=== PATIENT | female | born 1940 | race Caucasian/White ===

== ENCOUNTER → 2016-11-04 | Outpatient (CLI) | payer MEDICARE, OTHER ==
[~2016-11-04] MED LIST: ALBUTEROL MININEB; ALBUTEROL MININEB NEB; ALBUTEROL17 GM INH; AMBIEN PO; AMBIEN10 MG PO; ANTIVERT PO; AVANDIA PO; CALCIUM1 TAB.CHEW PO; CITALOPRAM HBR10 MG PO; COUMADIN1 MG PO; COUMADIN4 MG PO; DESYREL50 MG PO; GLIPIZIDE10 MG PO; GLIPIZIDE10 MG/BOTT PO; GLUCOPHAGE850 MG PO; GLUCOTROL XL10 MG PO; HCTZ PO; HYDROCODON-ACE1 EAC5 PO; HYDROCODONE PO; HYDROCODONE-APA1 T30 PO; HYDROCODONE-APA1 T55 PO; JANUMET 50-1,1 UDTAB PO; JANUVIA PO; KEFLEX500 M2 PO; KEFLEX500 MG PO; LASIX PO; LASIX20 MG PO; LEVOTHYROXINE50 MC1 PO; LEVOTHYROXINE50 MCG PO; LOSARTAN POTASS25 MG PO; MAG-OXIDE400 MG PO; MEGACE PO; METFORMIN PO; MONODOX100 MG PO; NEXIUM PO; NORCO1 TAB 10/3 PO; OMEPRAZOLE40 MG PO; ONGLYZA5 MG PO; PANTOPRAZOLE SO40 MG PO; PARLODEL2.5 MG PO; PREDNISOLONE5 MG PO; PREDNISONE10 MG PO; PRINIVIL PO; PRINIVIL20 M1 PO; PYRIDOSTIGMINE PO; REGLAN PO; REGLAN10 MG PO; REQUIP0.25 MG PO; REQUIP1 MG PO; REQUIP4 MG PO; SIMVASTATIN20 MG PO; SINGULAIR PO; SPIRIVA18 MCG INH; SYMBICORT 16010.2 GM INH; SYMBICORT INH; SYNTHROID PO; TRAMADOL HCL50 M2 PO; TYLENOL325 M1 PO; VICODIN 5/1 TAB 5/50 PO; VITAMIN B 6 PO; VITAMIN B650 M1 PO; VYTORIN PO; ZANTAC PO; ZANTAC150 MG PO; ZITHROMAX PO; ZOCOR20 MG PO; [UNRECOGNIZED DRUG - REMARK]
--- NOTE | ~2016-11-04 | CR230 ---
[facility]. [facility] A Service of [facility] RADIOLOGY TEXT RESULTS PATIENT: REUBEN YUNG LOCATION: [facility] : 39 UNIT #: [id number] AGE: [address]: Lucie Lemus GLASS BULB SILVERER SEX: F ORDER DR: [id number] [place] [id number] O MR#: [id number] Acc #: [id number] NAME: REUBEN YUNG : 1940 SEX: F STUDY DATE/TIME: 11/04/2016 10:56 UNIT: SRAD ROOM: STUDY DESCRIPTION: CR Shoulder Min 2 View Rt Attending Physician: Lucie Lemus A.P.R.N. Referring Physician: Lucie Lemus A.P.R.N. Ordering Physician: Lucie Lemus A.P.R.N. Primary Care Physician: Tere Brewer M.D. MEDICAL IMAGING REPORT This report is preliminary unless electronic signature is present. EXAM Right shoulder HISTORY Chronic right shoulder pain for over 30 years with recent worsening of symptoms. TECHNIQUE 3 views of the shoulder were obtained and compared with 05/04/2016 FINDINGS Since the previous examination no changes are seen. Mild hypertrophic degenerative changes are seen at the glenohumeral joint with osteophyte formation. No abnormal soft tissue calcifications or erosions are seen. No acute bony abnormalities are noted. IMPRESSION Mild osteoarthritis of the glenohumeral joint. No change from previous exam. Dictated by... David Rodríguez M.D. THIS IS AN ELECTRONICALLY VERIFIED REPORT David Rodríguez M.D. at 11/07/2016 11:44 AM RLF/jerry TD: 11/04/2016 17:57 JOB #: [id number] MEDICAL IMAGING REPORT Page 1 of 1
--- NOTE | ~2016-11-04 | CR229 ---
[facility] A Service [facility] RADIOLOGY TEXT RESULTS PATIENT: REUBEN YUNG LOCATION: [facility] : 39 UNIT #: [id number] AGE: [address]: Lucie Lemus REELING MACHINE SETUP OPERATOR SEX: F ORDER DR: [id number] [place] [id number] O MR#: [id number] Acc #: [id number] NAME: REUBEN YUNG : 1940 SEX: F STUDY DATE/TIME: 11/04/2016 10:56 UNIT: SRAD ROOM: STUDY DESCRIPTION: CR Shoulder Min 2 View Lt Attending Physician: Lucie Lemus A.P.R.N. Referring Physician: Lucie Lemus A.P.R.N. Ordering Physician: Lucie Lemus A.P.R.N. Primary Care Physician: Tere Brewer M.D. MEDICAL IMAGING REPORT This report is preliminary unless electronic signature is present. EXAM Left shoulder HISTORY Left shoulder pain chronically for the past 30 years gradually worsening. TECHNIQUE Three views of the left shoulder were obtained. FINDINGS The acromioclavicular joint space is widened suggesting previous surgery. At the glenohumeral joint there is joint space narrowing with moderate osteophyte formation. There is no evidence of bone destruction, fracture or abnormal soft tissue calcification. IMPRESSION Moderately severe degenerative changes at the glenohumeral joint. Probable postoperative change at the acromioclavicular joint with spur formation along the lateral acromion. No acute bony abnormalities are seen. Dictated by... David Rodríguez M.D. THIS IS AN ELECTRONICALLY VERIFIED REPORT David Rodríguez M.D. at 11/07/2016 11:44 AM CORONA/angelina TD: 11/04/2016 17:08 JOB #: [id number] MEDICAL IMAGING REPORT [facility] A Service [facility] RADIOLOGY TEXT RESULTS PATIENT: REUBEN YUNG [facility] UN[facility] #: [id number] AGE: [address]: Lucie Lemus SEX: F ORDER DR: Page 1 of 1
--- NOTE | ~2016-11-04 | CR63 ---
[facility]. [facility] A Service of [facility] RADIOLOGY TEXT RESULTS PATIENT: REUBEN YUNG LOCATION: [facility] : 39 UNIT #: [id number] AGE: [address]: Lucie Lemus BANKRUPTCY PROCESSOR SEX: F ORDER DR: [id number] [place] [id number] O MR#: [id number] Acc #: [id number] NAME: REUBEN YUNG : 1940 SEX: F STUDY DATE/TIME: 11/04/2016 10:56 UNIT: SRAD ROOM: STUDY DESCRIPTION: CR Chest 2 View Attending Physician: Lucie Lemus A.P.R.N. Referring Physician: Lucie Lemus A.P.R.N. Ordering Physician: Lucie Lemus A.P.R.N. Primary Care Physician: Tere Brewer M.D. MEDICAL IMAGING REPORT This report is preliminary unless electronic signature is present. EXAM Chest 11/04/2016 [facility] HISTORY 76-year-old woman cough. Chest pain. Bilateral shoulder pain chronic symptoms, 6 years. Symptoms are however increasing. History of right mastectomy. High blood pressure, spine surgery. FINDINGS AP lateral chest views demonstrate cardiomegaly. Large body habitus with reduced inspiration. Lungs appear clear with no infiltrates. There is elevation of the right hemidiaphragm. Advanced degenerative thoracic marginal osteophytes with thoracolumbar fusion rods partially imaged. IMPRESSION Atherosclerotic cardiovascular disease with stable cardiomegaly. No acute chest finding. Thoracolumbar fusion rods partially imaged; degenerative findings throughout the spine with mildly exaggerated kyphosis. Large body habitus. Dictated by... Dale Vega M.D. THIS IS AN ELECTRONICALLY VERIFIED REPORT Dale Vega M.D. at 11/07/2016 8:08 AM JBB/jerry TD: 11/04/2016 17:03 JOB #: [id number] MEDICAL IMAGING REPORT Page 1 of 1
== END | disposition home or self-care (01) ==
LOC: SRAD 10:32
DX: M25.512 Pain in left shoulder (principal); M25.511 Pain in right shoulder; R05 Cough; I25.10 Atherosclerotic heart disease of native coronary artery without angina pectoris; I51.7 Cardiomegaly; M47.894 Other spondylosis, thoracic region; M40.205 Unspecified kyphosis, thoracolumbar region; M19.012 Primary osteoarthritis, left shoulder; M19.011 Primary osteoarthritis, right shoulder; Z98.890 Other specified postprocedural states; Z98.1 Arthrodesis status
CPT/HCPCS: 71020; 73030

== ENCOUNTER → 2016-11-10 | Outpatient (CLI) | payer MEDICARE, OTHER ==
--- NOTE | ~2016-11-10 | MY24 ---
[facility] A Service of [facility] RADIOLOGY TEXT RESULTS PATIENT: REUBEN YUNG LOCATION: [facility] : 39 UNIT #: [id number] AGE: [address]: ELENA CASE APRN SEX: F ORDER DR: [id number] [facility] [address] [place], [place] [address] [id number] O MR#: [id number] Acc #: [id number] NAME: REUBEN YUNG. : 1940 SEX: F STUDY DATE/TIME: 11/10/2016 8:40 UNIT: [facility] ROOM: STUDY DESCRIPTION: JOHN HICKS W/ CAD UNI LT Attending Physician: Elena Case Aprn Referring Physician: Lucie Lemsu A.P.R.N. Ordering Physician: Elena Case Aprn Primary Care Physician: Lucie Lemus A.P.R.N. MEDICAL IMAGING REPORT This report is preliminary unless electronic signature is present EXAM Diagnostic left mammogram, 11/10. INDICATION History of right side breast cancer status post mastectomy. No current complaints. Followup exam. FINDINGS Digital CC, MLO, and ML views of the left breast were obtained in addition to spot compression CC and MLO views. Study is reviewed with an FDA-approved CAD device. Comparison made with 01/12/2012. Breast parenchyma remains heterogeneously dense. No new masses or suspicious microcalcifications are seen. Benign calcifications are stable. Findings were discussed with the patient at the time of her examination today. IMPRESSION Benign left mammogram. Followup in 1 year recommended. Patients over the age of 40 are entered into a reminder system with target due date for the next mammogram. A result letter will also be sent to the patient. BIRADS: 2 Benign finding. Dictated by... David Charles Jr., M.D. THIS IS AN ELECTRONICALLY VERIFIED REPORT David Charles Jr., M.D. at 11/10/2016 4:49 PM [facility] A Service of [facility] RADIOLOGY TEXT RESULTS PATIENT: REUBEN YUNG LOCATION: [facility] #: [id number] : 39 UNIT #: [id number] AGE: [address]: ELENA CASE APRN SEX: F ORDER DR: SHANNON/analilia TD: 11/10/2016 10:23 JOB #: [id number] MEDICAL IMAGING REPORT Page 1 of 1 COPY
== END | disposition home or self-care (01) ==
LOC: CMAM 11-07 11:30
DX: R92.1 Mammographic calcification found on diagnostic imaging of breast (principal)
CPT/HCPCS: G0206

== ENCOUNTER → 2016-12-05 | Outpatient (CLI) | payer MEDICARE, OTHER ==
--- NOTE | ~2016-12-05 | CR169 ---
[facility]. [facility] A Service of [facility] & [facility] RADIOLOGY TEXT RESULTS PATIENT: REUBEN YUNG LOCATION: [facility] : 39 UNIT #: [id number] AGE: [address]: Lucie LemusP SEX: F ORDER DR: [id number] [address] [address] [id number] O MR#: [id number] Acc #: [id number] NAME: REUBEN YUNG : 1940 SEX: F STUDY DATE/TIME: 12/05/2016 13:50 UNIT: [facility] ROOM: STUDY DESCRIPTION: CR Knee 2 Views Lt Attending Physician: Lucie Lemus A.P.R.N. Ordering Physician: Lucie Lemus A.P.R.N. Primary Care Physician: Lucie Lemus A.P.R.N. MEDICAL IMAGING REPORT This report is preliminary unless electronic signature is present. EXAM Left knee series HISTORY Fell Miriam off bus. Pain left knee. FINDINGS AP and lateral radiographs of the left knee are presented. Status post left knee arthroplasty. Orthopedic hardware normally located and aligned. Joint spaces are intact. No joint effusion. Linear calcification along the anterior aspect of the tibial plateau favored to be chronic in time course. No overlying soft tissue abnormality and no fracture donor site seen. There is no soft tissue defect, non-orthopedic radiodense foreign body or subcutaneous air. No effusion. Dictated by... Emerson Mayers M.D. THIS IS AN ELECTRONICALLY VERIFIED REPORT Emerson Mayers M.D. at 12/06/2016 2:08 PM JOSE/lukas TD: 12/06/2016 02:11 JOB #: [id number] MEDICAL IMAGING REPORT Page 1 of 1
--- NOTE | ~2016-12-05 | CR21 ---
[facility] A Service of [facility] RADIOLOGY TEXT RESULTS PATIENT: REUBEN YUNG LOCATION: [facility] : 39 UNIT #: [id number] AGE: [address]: Lucie Lemus [employer]ISCO CERTIFIED NETWORK PROFESSIONAL SEX: F ORDER DR: [id number] [place] [id number] O MR#: [id number] Acc #: [id number] NAME: REUBEN YUNG : 1940 SEX: F STUDY DATE/TIME: 12/05/2016 13:50 [facility]: STUDY DESCRIPTION: CR Ankle Min 3 Views Rt Attending Physician: Lucie Lemus A.P.R.N. Ordering Physician: Lcuie Lemus A.P.R.N. Primary Care Physician: Lucie Lemus A.P.R.N. MEDICAL IMAGING REPORT This report is preliminary unless electronic signature is present. EXAM Right ankle series, 12/05/2016. HISTORY Fall Monday. Fell off bus. Pain right ankle. TECHNIQUE AP, lateral, and oblique radiographs of the right ankle are presented. FINDINGS No traumatic fracture or malalignment. There appears to be skin thickening/soft tissue swelling adjacent to the lateral malleolus and anterior aspect of the ankle. Correlate with the exam. There is a small plantar calcaneal spur. This examination not tailored for assessment of the foot. There appears to be generalized hyperextension of the metatarsophalangeal joints. This could be positional in nature or be chronic alignment for this patient. Correlate clinically. Dictated by... Emerson Mayers M.D. THIS IS AN ELECTRONICALLY VERIFIED REPORT Emerson Mayers M.D. at 12/06/2016 2:08 PM JOSE/analilia TD: 12/06/2016 01:34 JOB #: [id number] MEDICAL IMAGING REPORT Page 1 of 1
--- NOTE | ~2016-12-05 | CR252 ---
[facility] A Service of [facility] RADIOLOGY TEXT RESULTS PATIENT: REUBEN YUNG LOCATION: [facility] : 39 UNIT #: [id number] AGE: [address]: Lucie Lemus FLAKER OPERATOR SEX: F ORDER DR: [id number] [address] [address] [id number] O MR#: [id number] Acc #: [id number] NAME: REUBEN YUNG : 1940 SEX: F STUDY DATE/TIME: 12/05/2016 13:50 UNIT: [facility] ROOM: STUDY DESCRIPTION: CR Tibia and Fibula 2 Views Lt Attending Physician: Lucie Lemus A.P.R.N. Ordering Physician: Lucie Lemus A.P.R.N. Primary Care Physician: Lucie Lemus A.P.R.N. MEDICAL IMAGING REPORT This report is preliminary unless electronic signature is present. EXAM Left tibia-fibula series, 12/05/2016. HISTORY Fall. Fell off bus Monday. Pain. TECHNIQUE AP and lateral radiographs of the left tibia and fibula are presented. FINDINGS Patient is status post left knee arthroplasty. The orthopedic hardware appears intact, normally aligned and located. The tibia and fibula show no indication of traumatic fracture or malalignment. There is a well-corticated calcification distal to the lateral malleolus favored to be chronic soft tissue calcification or perhaps sequelae of remote trauma. There is a plantar calcaneal spur. Mild soft tissue swelling suggested anterior to ankle and adjacent to the lateral malleolus. Please correlate with exam. Dictated by... Emerson Mayers M.D. THIS IS AN ELECTRONICALLY VERIFIED REPORT Emerson Mayers M.D. at 12/06/2016 2:08 PM JOSE/analilia TD: 12/06/2016 01:03 JOB #: [id number] MEDICAL IMAGING REPORT [facility] A Service [facility] RADIOLOGY TEXT RESULTS PATIENT: REUBEN YUNG LOCATION: [facility] : 39 UNIT #: [id number] AGE: [address]: Lucie Lemus SEX: F ORDER DR: Page 1 of 1
--- NOTE | ~2016-12-05 | CR170 ---
[facility] A Service of [facility] RADIOLOGY TEXT RESULTS PATIENT: REUBEN YUNG LOCATION: [facility] : 39 UNIT #: [id number] AGE: [address]: Lucie Lemus BREAST WORKER SEX: F ORDER DR: [id number] [address] [address] [id number] O MR#: [id number] Acc #: [id number] NAME: REUBEN YUNG : 1940 SEX: F STUDY DATE/TIME: 12/05/2016 13:50 UNIT: [facility] ROOM: STUDY DESCRIPTION: CR Knee 2 Views Rt Attending Physician: Lucie Lemus A.P.R.N. Ordering Physician: Lucie Lemus A.P.R.N. Primary Care Physician: Lucie Lemus A.P.R.N. MEDICAL IMAGING REPORT This report is preliminary unless electronic signature is present. EXAM Right knee series, 12/05/2016. HISTORY Fall. Fell off bus Monday. TECHNIQUE AP and lateral radiographs of the knee are presented. FINDINGS The femur, tibia, and fibula appear intact. There is evidence of chondrocalcinosis in medial and lateral joint space compartments. There is a small joint effusion in the suprapatellar recess. On the frontal view, there is ill-defined calcification along the superolateral aspect of the patella. It is unclear if this represents a nondisplaced fracture fragment or a prominent osteophyte directed superolaterally. To clarify potential fracture, sunrise view of the knee is strongly recommended. This does not have the usual appearance of a bipartite patella. Overall, I favor that the appearance reflects a prominent osteophyte formation. Again, sunrise view recommended for clarification. There is no soft tissue defect, subcutaneous air, or radiodense foreign body. Fabella posteriorly. Dictated by... Emerson Mayers M.D. THIS IS AN ELECTRONICALLY VERIFIED REPORT Emerson Mayers M.D. at 12/06/2016 2:08 PM JOSE/analilia [facility] A Service of [facility] & [facility] RADIOLOGY TEXT RESULTS PATIENT: REUBEN YUNG LOCATION: [facility] : 39 UNIT #: [id number] AGE: [address]: Lucie Lemus SEX: F ORDER DR: TD: 12/06/2016 01:28 JOB #: [id number] MEDICAL IMAGING REPORT Page 1 of 1
== END | disposition home or self-care (01) ==
LOC: SRAD 13:35
DX: M25.562 Pain in left knee (principal); M25.561 Pain in right knee; M25.571 Pain in right ankle and joints of right foot; M79.662 Pain in left lower leg
CPT/HCPCS: 73560; 73590; 73610